=== PATIENT | male | born 1995 | race Two or more races ===

== ENCOUNTER 2016-10-05 15:22 | Emergency (ER) | payer OTHER ==
[~2016-10-05] VITALS: Ht 182.9 cm; Wt 127.5 kg
[2016-10-05 15:34] VITALS: Ht 182.9 cm; Wt 127.5 kg
[2016-10-05] MEDS ORDERED: LIDOCAINE/MYLANTA 40 ML BTL PO STA (16:56)
[2016-10-05] MEDS ORDERED: OMEP40CA6 PO (16:59)
--- NOTE | 2016-10-05 17:00 | ERD ---
ER Documentation Chief Complaint Date/Time DATE: 10/05/16 TIME: 16:59 Chief Complaint ONGOING ABDOMINAL PAIN FOR TWO YEARS, HX OF GASTRITIS. HPI This is a 20-year-old male has had a history of gastritis complains of a flareup onset last night at 330. Patient states of burning epigastric pain is worse when he eats food he is nauseated but no vomiting diarrhea. No shortness of breath or chest pain. Says has is multiple times in the past has been relieved by Tums ROS All systems reviewed and are negative except as per history of present illness. Medications Home Meds Active Scripts Omeprazole* (Omeprazole*) 40 Mg Capsule., 40 MG PO DAILY, #21 CAP Prov:BECKIE REYES DO 10/05/16 Reported Medications [None] No Conflict Check 04/02/10 Allergies Allergies: Coded Allergies: No Known Allergies (Verified Allergy, Mild, 04/07/10) PMhx/Soc History of Surgery: No Anesthesia Reaction: No Hx Neurological Disorder: No Hx Respiratory Disorders: No Hx Cardiac Disorders: No Hx Psychiatric Problems: No Hx Miscellaneous Medical Probl: Yes (PANCREATITIS) Hx Alcohol Use: No Hx Substance Use: No Hx Tobacco Use: No FmHx Family History: No coronary disease Physical Exam Vitals Vital Signs Date Time Temp Pulse Resp B/P Pulse Ox O2 Delivery O2 Flow Rate FiO2 10/05/16 15:34 97.8 60 17 136/90 96 Physical Exam Const: Well-developed, well-nourished Head: Atraumatic, normocephalic Eyes: Normal Conjunctiva, PERRLA, EOMI, normal sclera, no nystagmus ENT: Normal External Ears, Nose and Mouth, moist mucus membranes. Neck: Full range of motion. No meningismus, no lymphadenopathy. Resp: Clear to auscultation bilaterally, no wheezing, rhonchi, rales Cardio: Regular rate and rhythm, no murmurs, S1 S2 present Abd: Soft, mild epigastric tenderness non distended. Normal bowel sounds, no guarding or rebound, no pulsitile abdominal masses or bruits Skin: No petechiae or rashes, no ecchymosis , no maculopapular rash Back: No midline or flank tenderness Ext: No cyanosis, or edema, FROM x 4, normal inspection, neurovascularly intact x 4 Neur: Awake and alert, STR 5/5 x 4, sensation intact x 4, no focal findings, cerebellum intact Psych: Normal Mood and Affect Results 24 hrs Current Medications Medications (Trade) Dose Ordered Sig/Hayden Route PRN Reason Start Time Stop Time Status Last Admin Dose Admin Miscellaneous Medication (Gi Cocktail (2)) 40 ml ONCE STAT PO 10/05/16 16:56 10/05/16 16:57 DC Procedures/MDM GI cocktail helped his pain Departure Diagnosis: Primary Impression: Gastritis Gastritis type: unspecified gastritis Chronicity: acute Gastritis bleeding : without bleeding Qualified Code: K29.00 - Acute gastritis without hemorrhage, unspecified gastritis type Condition: Stable Patient Instructions: Gastritis Vs. Ulcer BECKIE REYES DO Oct 05, 2016 17:00
== END 2016-10-05 17:18 | disposition home or self-care (01) ==
LOC: FTE 15:22
DX: K29.00 Acute gastritis without bleeding (principal)
CPT/HCPCS: Z7502; Z7610; 99283

== ENCOUNTER 2017-04-04 18:20 | Emergency (ER) | payer OTHER ==
[~2017-04-04] VITALS: Wt 109.7 kg
[~2017-04-04 18:20] MED LIST: OMEP40CA6 PO
[2017-04-04] MEDS ORDERED: HYDROCODONE/APAP (5/325) TAB PO ONE (20:30)
--- NOTE | 2017-04-04 21:08 | RADRPT ---
PROCEDURE: XR Ankle. CLINICAL INDICATION: Pain TECHNIQUE: AP, oblique and lateral views of the left ankle were performed. COMPARISON: None. FINDINGS: Three views left ankle demonstrate no displaced fracture. No gross malalignment is seen. The ankle mortise is intact. The bones normally mineralized. There is mild soft tissue swelling along the l ateral malleolus.. IMPRESSION: No acute fracture dislocation. Mild soft tissue swelling along the lateral malleolus RPTAT: HH .Odin Worthy MD, Date Time Electronically viewed and signed by .Odin Worthy MD, on 04/04/2017 21:08 .W/
[2017-04-04] MEDS ORDERED: IBUP800T25 PO (21:37)
[2017-04-04] MEDS ORDERED: HYDR-906 PO (21:37)
--- NOTE | 2017-04-04 21:43 | ERD ---
ER Documentation Chief Complaint Chief Complaint LEFT ANKLE INJURY THIS AM, SWELLING NOTED HPI This is a 21-year-old male playing basketball this morning jumped to catch a ball and landed he inverted his left ankle. Is complaining of sharp pain to the lateral aspect of his left ankle with some mild swelling no erythema no deformity the patient can walk on it but it is painful. Pain is sharp and nonradiating no pain in the knee or hip no fall or other injury ROS All systems reviewed and are negative except as per history of present illness. Medications Home Meds Active Scripts Hydrocodone/Acetaminophen (Marion 5-325 Tablet) 1 Each Tablet, 1 TAB PO Q6H Y for PAIN, #7 TAB Prov:LEKKOS,APOSTOLOS A. DO 04/04/17 Ibuprofen* (Motrin*) 800 Mg Tab, 800 MG PO Q6H Y for PAIN AND OR ELEVATED TEMP, #30 TAB Prov:LEKKOS,APOSTOLOS A. DO 04/04/17 Omeprazole* (Omeprazole*) 40 Mg Capsule.dr, 40 MG PO DAILY, #21 CAP Prov:LEKKOS,APOSTOLOS A. DO 10/05/16 Reported Medications [None] No Conflict Check 04/02/10 Allergies Allergies: Coded Allergies: No Known Allergies (Verified Allergy, Mild, 04/07/10) PMhx/Soc Medical and Surgical Hx: pt denies Medical Hx, pt denies Surgical Hx History of Surgery: No Anesthesia Reaction: No Hx Neurological Disorder: No Hx Respiratory Disorders: No Hx Cardiac Disorders: No Hx Psychiatric Problems: No Hx Miscellaneous Medical Probl: Yes (PANCREATITIS) Hx Alcohol Use: No Hx Substance Use: No Hx Tobacco Use: No Smoking Status: Current some day smoker FmHx Family History: No coronary disease Physical Exam Vitals Vital Signs Date Time Temp Pulse Resp B/P Pulse Ox O2 Delivery O2 Flow Rate FiO2 04/04/17 18:25 97.7 78 17 128/81 98 Physical Exam Const: Well-developed, well-nourished Head: Atraumatic, normocephalic Eyes: Normal Conjunctiva, PERRLA, EOMI, normal sclera, no nystagmus ENT: Normal External Ears, Nose and Mouth, moist mucus membranes. Neck: Full range of motion. No meningismus, no lymphadenopathy. Resp: Clear to auscultation bilaterally, no wheezing, rhonchi, rales Cardio: Regular rate and rhythm, no murmurs, S1 S2 present Abd: Soft, non tender x 4, non distended. Normal bowel sounds, no guarding or rebound, no pulsitile abdominal masses or bruits Skin: No petechiae or rashes, no ecchymosis , no maculopapular rash Back: No midline or flank tenderness Ext: No cyanosis, or edema, FROM x 4, normal inspection, neurovascularly intact x 4, tenderness to the left lateral malleolus and underneath the lateral malleolus there is some minimal swelling no ecchymosis there is range of motion but painful Neur: Awake and alert, STR 5/5 x 4, sensation intact x 4, no focal findings, cerebellum intact Psych: Normal Mood and Affect Results 24 hrs Current Medications Medications (Trade) Dose Ordered Sig/Hayden Route PRN Reason Start Time Stop Time Status Last Admin Dose Admin Acetaminophen/ Hydrocodone Bitart (Marion (5/325)) 2 tab ONCE ONCE PO 04/04/17 20:30 04/04/17 20:31 DC 04/04/17 20:43 Procedures/MDM PROCEDURE: XR Ankle. CLINICAL INDICATION: Pain TECHNIQUE: AP, oblique and lateral views of the left ankle were performed. COMPARISON: None. FINDINGS: Three views left ankle demonstrate no displaced fracture. No gross malalignment is seen. The ankle mortise is intact. The bones normally mineralized. There is mild soft tissue swelling along the lateral malleolus.. IMPRESSION: No acute fracture dislocation. Mild soft tissue swelling along the lateral malleolus RPTAT: .Odin Worthy MD, MD Date Time Electronically viewed and signed by .Odin Worthy MD, on 04/04/2017 21:08 .W/ CC: BECKIE REYES DO Received splint and crutches will follow up Departure Diagnosis: Primary Impression: Sprained ankle Encounter type: initial encounter Involved ligament of ankle: unspecified ligament Laterality: left Qualified Code: S93.402A - Sprain of left ankle, unspecified ligament, initial encounter Condition: Stable Patient Instructions: Treating Ankle Sprains BECKIE REYES DO Apr 04, 2017 21:43
== END 2017-04-04 22:55 | disposition home or self-care (01) ==
LOC: FTE 18:20
DX: S93.402A Sprain of unspecified ligament of left ankle, initial encounter (principal); F17.210 Nicotine dependence, cigarettes, uncomplicated; W21.05XA Struck by basketball, initial encounter; Y92.9 Unspecified place or not applicable
CPT/HCPCS: 29515; 73610; Z7502; Z7610